=== PATIENT | male | born 1985 | race Caucasian/White ===

== ENCOUNTER → 2021-08-02 12:14 | Outpatient (CLI) | payer OTHER, SELFPAY ==
[2021-08-02 14:32] LABS: Hematocrit 43.4 % (41-53); Hemoglobin 15.3 g/dL (13.5-17.5); Mean Corpuscular HGB Conc 35.3 % (30-36); Mean Corpuscular Hemoglobin 29.5 PG (26-34); Mean Corpuscular Volume 83.6 fL (80-100); Platelet Count 271 X10^3/uL (150-400); Red Blood Cell Count 5.19 X10^6/uL (4.5-5.9); Red Cell Distribution Width 12.6 % (11.6-14.8); White Blood Cell Count 6.1 X10^3/uL (4.5-11.0)
[2021-08-02 14:58] LABS: Appearance Urine UA CLEAR; Bilirubin Urine UA NEGATIVE (NEGATIVE); Color Urine UA YELLOW; Glucose Urine UA NEGATIVE (Negative); Ketones Urine UA NEGATIVE (NEGATIVE); Leukocyte Esterase Urine UA NEGATIVE (NEGATIVE); Nitrite Urine UA NEGATIVE (Negative); Occult Blood Urine UA NEGATIVE (Negative); Protein Urine UA NEGATIVE (Negative); Urobilinogen Urine UA 0.2 E.U./dL (0.2)
[2021-08-02 15:16] LABS: Alanine Aminotransferase 22 IU/L (<50); Albumin 4.5 g/dL (3.5-5.0); Albumin Globulin Ratio 1.3 (1.0-2.8); Alkaline Phosphatase 76 U/L (38-126); Aspartate Aminotransferase 33 IU/L (17-59); BUN Creatinine Ratio 15.2 (6-22); Bilirubin Total 0.5 mg/dL (0.2-1.3); Blood Urea Nitrogen 12 mg/dL (9-20); Calcium 9.2 mg/dL (8.4-10.2); Carbon Dioxide 33 mmol/L (22-32); Chloride 102 mmol/L (98-107); Cholesterol 148 mg/dL (140-199); Estimated Glomerular Filt Rate > 60 mL/min (>60); Globulin 3.4 g/dL (1.7-4.1); Glucose 87 mg/dL (70-100); HDL Cholesterol 36 mg/dL (40-60); HEMOLYSIS < 15 (0-50); LDL Cholesterol Calculated 88 mg/dL (<100); Potassium 4.2 mmol/L (3.4-5.1); Sodium 140 mmol/L (137-145); Total Protein 7.9 g/dL (6.3-8.2); Triglycerides 121 mg/dL (35-150)
[2021-08-02 15:33] LABS: Bacteria Urine None Seen; Culture Indicated Urine Cult Not Indicated; RBC Urine 0-1/HPF (0-5/HPF); WBC Urine 0-1/HPF (0-5/HPF)
[2021-08-02 15:39] LABS: Sodium Urine Random 97 mmol/L (30-90)
[2021-08-02 15:46] LABS: Prostate Specific Antigen 0.868 ng/mL (0.10-4.00)
[2021-08-02 16:05] LABS: Urine N gonorrhoeae NOT DETECTED
[2021-08-02 16:29] LABS: Urine Chlamydia NOT DETECTED
[2021-08-02 16:47] LABS: TSH w/ Reflex to FT4 1.11 uIU/mL (0.47-4.68)
[2021-08-03 17:30] LABS: HIV 1 & 2 Ab/Ag 4th Gen Combo NEGATIVE (NEGATIVE); Hep C Virus Ab w/Reflex Quant NEGATIVE s/c (NEGATIVE)
== END ==
PROVIDERS: PCP Internal Medicine; Referring Provider Internal Medicine; Visit Provider Internal Medicine
DX: Z00.00 Encounter for general adult medical examination without abnormal findings (principal); R35.0 Frequency of micturition; R35.1 Nocturia; Z20.9 Contact with and (suspected) exposure to unspecified communicable disease; Z12.5 Encounter for screening for malignant neoplasm of prostate
CPT/HCPCS: 36415; 80053; 80061; 81001; 84153; 84300; 84443; 85027; 86803; 87389; 87491; 87591; G0103

== ENCOUNTER → 2021-11-13 17:09 | Outpatient (CLI) | payer OTHER, SELFPAY ==
--- NOTE | 2021-11-13 17:09 | DI.RAD.S_ITS ---
PROCEDURE: XR CERVICAL SPINE 2V OR 3V INDICATIONS: neck pain, no trauma TECHNIQUE: 3 view(s) of the cervical spine were acquired. COMPARISON: None. FINDINGS: Bones: No fractures or dislocations to the T1 level. Mild straightening of normal cervical lordosis is seen. The lateral masses of C1 appear intact on the odontoid view. No suspicious bony lesions. Soft tissues: No prevertebral soft tissue swelling. IMPRESSION: No cervical spine fracture or dislocation. No finding to explain patient's symptoms. Dictated by: Jayro Biggs M.D. on 11/14/2021 at 10:00 Approved by: Jayro Biggs M.D. on 11/14/2021 at 10:01
== END ==
PROVIDERS: PCP Internal Medicine; Referring Provider Internal Medicine; Visit Provider Internal Medicine
DX: M54.2 Cervicalgia (principal)
CPT/HCPCS: 72040

== ENCOUNTER 2022-03-26 16:45 | Outpatient (RCR) | payer OTHER, SELFPAY ==
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
--- NOTE | 2022-03-02 16:58 | PT.OPPOC ---
Physical, Occupational & Speech Therapy At [facility] Current Diagnoses Cervicalgia (03/02/22) Visit Care Team Role Provider Type Live Olivares MD Attending Provider Physician Family Provider Primary Care Provider Referring Provider Specialty: Internal Medicine Address: [address] [place] [address], [id number] Email: [email or web address] Plan Of Care PT-OP-T Assessment and Plan Start: 03/02/22 16:34 Freq: Status: Active Protocol: Document 03/02/22 16:00 DCW (Rec: 03/02/22 16:56 DCW [id number]) Physical Therapy Assessment Rehab Potential Rehabilitation Potential Excellent Evaluation Complexity Number of Personal Factors/Comorbidities 0 Number of Body Systems Impaired 1-2 Clinical Presentation at Evaluation Stable Impairments Impairments Functional Activities, Functional Mobility,Pain, Posture,ROM,Soft Tissue Mobility,Tone Goals Two Impairment L cervical rotation 21? less than R Assisted Goal (LTG) Left cervical rotation to improve at least 10? to 62?, in order to improve ability to turn head to look at traffic while driving. LTG Duration 04/02/22 One Impairment Pt does not have an appropriate home exercise program Short Term Goal (STG) Pt to be independent and compliant with an appropriate HEP STG Duration 03/16/22 Assessment Summary Assessment Pt presents with signs and symptoms consistent with referring diagnosis. Pt has ongoing cervicalgia and increased right-sided muscle tone along paraspinals, upper trap, scalenes, and SCM, resulting in occasional flare- ups of pain and limited ROM. Pt admits that he does not know the cause, however also rarely does any preventative stretching. Pt not in the middle of a flare-up currently , so it not too effected by it at the moment. Pt will likely benefit from an Independent stretching program, as well as a few more appointments with skilled PT in an effort to decrease tone and improve mobility with STM, stretching, and gentle strengthening. Physical Therapy Plan Frequency and Duration Frequency of Treatment 1-2x/week Plan of Care Start Date 03/02/22 Plan of Care End Date 04/02/22 Therapeutic Interventions Therapeutic Interventions Home Exercise Program,Joint Mobilizations,Manual Therapy, Neuromuscular Re-education, Patient/Caregiver Education, Self-Care/Home Management,Soft Tissue Mobilization, Therapeutic Activities, Therapeutic Exercises Next Visit Focus/Plan Next Note Type Treatment Note Next Visit Plan STM, stretching, strengthening Plan of Care Dates Plan of Care Start Date 03/02/22 Plan of Care End Date 04/02/22 Electronically Signed by: Suhail Ramos, PT 03/02/22 3688 If you are in agreement with this Plan of Care, please return a signed and dated copy. I have reviewed this Plan of Care and certify that the skilled therapy services above are required to meet the patient?s needs. Physician Signature Date Printed Name and Credentials Clinical Instructor Signature Printed Name and Credentials
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
== END 2022-03-27 10:26 | disposition home or self-care (01) ==
LOC: PHYS 16:45
PROVIDERS: Family Provider Internal Medicine; PCP Internal Medicine; Referring Provider Internal Medicine; Visit Provider Internal Medicine
DX: M54.2 Cervicalgia (principal)
CPT/HCPCS: 97110; 97140; 97161

== ENCOUNTER → 2024-05-21 07:00 | Outpatient (CLI) | payer BC, SELFPAY ==
[2024-05-21 08:58] LABS: Cholesterol 190 mg/dL (140-199); Glucose 79 mg/dL (70-100); HDL Cholesterol 42 mg/dL (40-60); LDL Cholesterol Calculated 129 mg/dL (<100); Triglycerides 96 mg/dL (35-150)
== END ==
PROVIDERS: Family Provider Internal Medicine; PCP Internal Medicine; Referring Provider Internal Medicine; Visit Provider Internal Medicine
DX: Z00.00 Encounter for general adult medical examination without abnormal findings (principal)
CPT/HCPCS: 36415; 80061; 82947